=== PATIENT | female | born 1965 | race Two or more races ===

== ENCOUNTER 2024-09-10 08:18 | Emergency (ER) | payer OTHER ==
[~2024-09-10] VITALS: Ht 172.7 cm; Wt 106.1 kg
[2024-09-10] MEDS ORDERED: ATORVALIQ20 MG/5 ML (08:30)
[2024-09-10] MEDS ORDERED: AZOR 10-20 MG1 EACH (08:30)
[2024-09-10] MEDS ORDERED: TRAZODONE HCL300 MG (08:30)
[2024-09-10] MEDS ORDERED: CHLORTHALIDONE50 MG (08:30)
[2024-09-10] MEDS ORDERED: KETOROLAC TROMETHAMINE 30 MG VIAL IM STA (09:31)
== END 2024-09-10 11:12 | disposition home or self-care (01) ==
LOC: ER 08:20
DX: S79.812A Other specified injuries of left hip, initial encounter (principal); W19.XXXA Unspecified fall, initial encounter; Y93.89 Activity, other specified; Y92.89 Other specified places as the place of occurrence of the external cause; Y99.8 Other external cause status; M25.559 Pain in unspecified hip
CPT/HCPCS: 72100; 73502; 96372; 99283; J1885